=== PATIENT | female | born 2000 | race American Indian/Alaskan Native ===

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

== ENCOUNTER 2020-01-10 20:44 | Emergency (ER) | payer SELFPAY ==
--- NOTE | 2020-01-10 22:32 | XRay Report ---
CHEST 2 VIEWS INDICATION / CLINICAL INFORMATION: chest pain. COMPARISON: 07/31/2018 FINDINGS: SUPPORT DEVICES: None. HEART / MEDIASTINUM: No significant abnormality. LUNGS / PLEURA: No significant pulmonary or pleural abnormality. No pneumothorax. ADDITIONAL FINDINGS: No significant additional findings. IMPRESSION: 1. No acute findings. Signer Name: Ulisses Li MD Signed: 01/10/2020 10:31 PM Workstation Name: [id number]
[2020-01-10 23:32] VITALS: BP 138/63
--- NOTE | 2020-01-11 00:14 | Emergency Department Report ---
Minor Respiratory - HPI Chief Complaint: Upper Respiratory Infection Stated Complaint: COLD SX Time Seen by Provider: 01/11/20 00:01 Duration: Today Pain Location: Throat Severity: mild Minor Respiratory: Yes Rhinorrhea, Yes Sore Throat, Yes Able to Tolerate Fluids, Yes Cough, Yes Chest Pain, No Ear Pain, No Sick Contacts, No Hemoptysis, No Shortness of Breath, No Fever Other History: The patient was evaluated in the emergency department for symptoms described in the history of present illness. He/she was evaluated in the context of the global COVID-19 pandemic, which necessitated consideration that the patient might be at risk for infection with the virus that causes COVID-19. Institutional protocols and algorithms that pertain to the evaluation of patients at risk for COVID-19 are in a state of rapid change based on information released by regulatory bodies including the CDC and federal and state organizations. These policies and algorithms were followed during the patient's care in the emergency department. Please note that these policies, procedures and recommendations changed on a rapid basis. 19-year-old -Wallisian female presents to the emergency room for runny nose nasal congestion cough with mucus. No fever no chills no vomiting abdominal pain. Patient reports she has a history of asthma and requesting neb solution as she has been using her inhaler and feels like is not helping. Patient denies any wheezing. Patient does work in a warehouse. ED Review of Systems ROS: Stated complaint: COLD SX Other details as noted in HPI Constitutional: denies: chills, fever Eyes: denies: eye pain, eye discharge, vision change ENT: throat pain, congestion, other (Rhinorrhea) Respiratory: cough. denies: shortness of breath Cardiovascular: chest pain Endocrine: no symptoms reported Gastrointestinal: denies: abdominal pain, nausea, diarrhea Genitourinary: as per HPI Musculoskeletal: denies: back pain, joint swelling, arthralgia Skin: denies: rash, lesions Neurological: denies: headache, weakness, paresthesias ED Past Medical Hx - Past Medical History Hx Asthma: Yes - Social History Smoking Status: Never Smoker - Medications Home Medications: Home Medications Medication Instructions Recorded Confirmed Last Taken Type Albuterol Mdi (or & Nicu Only) 2 puff IH Q4H PRN #1 inha 07/31/18 Unknown Rx [ProAir HFA Inhaler] Azithromycin [Zithromax Z-RAMON] 250 mg PO DAILY #6 tab 07/31/18 Unknown Rx Benzonatate [Tessalon Perles] 100 mg PO Q8HR PRN #30 capsule 07/31/18 Unknown Rx Ibuprofen [Motrin 800 MG tab] 800 mg PO Q8HR PRN #30 tablet 07/31/18 Unknown Rx Ondansetron [Zofran Odt] 4 mg PO Q8HR #10 tab.rapdis 11/23/18 Unknown Rx ALBUTEROL NEB's [Proventil 0.083% 2.5 mg IH TID PRN #1 box 01/11/20 Unknown Rx NEBS] predniSONE [Deltasone] 20 mg PO QDAY 5 Days #5 tab 01/11/20 Unknown Rx Minor Respiratory Exam - Exam General: Vital signs noted. No distress. Alert and acting appropriately. HEENT: Yes Moist Mucous Membranes, Yes Rhinorrhea, No Pharyngeal Erythema, No Pharyngeal Exudates, No Conjuctival Injection, No Frontal Tenderness, No Maxillary Tenderness Neck: Yes Supple, No Adenopathy Lungs: Yes Good Air Exchange, No Wheezes, No Ronchi, No Stridor, No Cough, No Labored Respirations, No Retractions, No Use of Accessory Muscles, No Other Abnormal Lung Sounds Heart: Yes Regular, No Murmur Abdomen: Yes Normal Bowel Sounds, No Tenderness, No Peritoneal Signs Skin: No Rash, No Edema Neurologic: Alert and oriented, no deficits. Musculoskeletal: Unremarkable. ED Course Vital Signs 01/10/20 21:06 Temperature 98.8 F Pulse Rate 96 H Respiratory 18 Rate Blood Pressure 138/63 O2 Sat by Pulse 100 Oximetry ED Medical Decision Making - Radiology Data Radiology results: report reviewed [address] [address] XRay Report Signed Patient: GILBERTO ORTEGA MR#: [id number] 8 : 2000 Acct:[id number] Age/Sex: 19 / F ADM Date: 01/10/20 Loc: ED Attending Dr: Ordering Physician: SEBASTIÁN WERNER Date of Service: 01/10/20 Procedure(s): XR chest routine 2V Accession Number(s): [id number] cc: SEBASTIÁN WERNER Fluoro Time In Minutes: CHEST 2 VIEWS INDICATION / CLINICAL INFORMATION: chest pain. COMPARISON: 07/31/2018 FINDINGS: SUPPORT DEVICES: None. HEART / MEDIASTINUM: No significant abnormality. LUNGS / PLEURA: No significant pulmonary or pleural abnormality. No pneumothorax. ADDITIONAL FINDINGS: No significant additional findings. IMPRESSION: 1. No acute findings. Signer Name: Ulisses Li MD Signed: 01/10/2020 10:31 PM Workstation Name: [id number] Transcribed By: GERALD Dictated By: Ulisses Li MD Electronically Authenticated By: Ulisses Li MD Signed Date/Time: 01/10/202230 DD/ 29 TD/TT: - Medical Decision Making 19-year-old -Wallis[place] female presents to the emergency room for runny nose nasal congestion cough with mucus. No fever no chills no vomiting abdominal pain. Patient reports she has a history of asthma and requesting neb solution as she has been using her inhaler and feels like is not helping. Patient denies any wheezing. Patient does work in a warehouse. Chest x-ray is negative for any acute findings. Lung exam is within normal limits. Discussed with patient she can take [id number] Claritin or Zyrtec's. Will refill her albuterol nebs. Patient can take ibuprofen or Tylenol. Critical care attestation.: If time is entered above; I have spent that time in minutes in the direct care of this critically ill patient, excluding procedure time. ED Disposition Clinical Impression: Viral syndrome Disposition: DC-01 TO HOME OR SELFCARE Is pt being admited?: No Does the pt Need Aspirin: No Condition: Stable Instructions: Viral Respiratory Infection, [id number], Hand Washing, [id number] Additional Instructions: Chest x-ray is negative for any pneumonia or bronchitis. I recommend [id number] Zyrtec's or Claritin. Take the prednisone and use the nebs as needed. Your symptoms appear most consistent with a nonspecific viral syndrome. However, given this current pandemic, COVID-19 is in the differential of possibilities. Despite your previous negative COVID-19 test, I do recommend repeat outpatient Covid 19 testing. In the meantime, isolate/quarantine yourself and stay away from anyone who is elderly, immunocompromised or chroni rolando ill. You can use ibuprofen every 6-8 hours and Tylenol every 4-8 hours, using the dosing on the back of the bottle, as needed for any fever or body aches. Return to the emergency department with any worsening of your symptoms, development of chest pain or shortness of breath, or with any acute distress. Prescriptions: predniSONE [Deltasone] 20 mg PO QDAY 5 Days #5 tab ALBUTEROL NEB's [Proventil 0.083% NEBS] 2.5 mg IH TID PRN #1 box PRN Reason: Wheezing Referrals: PRIMARY CARE, [Primary Care Provider] - 3-5 Days [facility] [Provider Group] - 3-5 Days Forms: Work/School Release Form(ED)
== END 2020-01-11 00:30 | disposition home or self-care (01) ==
LOC: ED 20:44
DX: B34.9 Viral infection, unspecified (principal); J45.909 Unspecified asthma, uncomplicated; Z79.899 Other long term (current) drug therapy
CPT/HCPCS: 71046